=== PATIENT | female | born 1950 | race Caucasian/White ===

== ENCOUNTER 2018-11-07 07:51 | Day surgery (SDC) | payer OTHER, MEDICARE ==
[~2018-11-07] VITALS: Ht 162.6 cm; Wt 108.9 kg
[~2018-11-07 07:51] MED LIST: DICL100ER; DICL100ER PO; DICMIS75EC PO; DULO60 PO; ERGO400 PO; Effexor Xr150 MG PO; FLUT1DIS2 INH; HTN MED; LEVSOD100 PO; LEVSOD112 PO; LEVSOD25 PO; LOSA50 PO; MAGNESIUM PO; METPHE27ER; OMEP20ER PO; OXYACE5T PO; OXYC30 PO; OXYC5 PO; Omeprazole20 M1 PO; Oxybutynin Chlo10 MG PO; PRAV20 PO; PREG150 PO; Ranitidine HCl300 MG PO; TRAZ50 PO; TRIHYD253B PO; VENL75ER; ZOLP10; ZOLP10 PO; [UNRECOGNIZED DRUG - REMARK]; [UNRECOGNIZED DRUG - REMARK]
--- NOTE | 2018-11-07 08:24 | NUR ---
Ambulatory in Day Surgery History, Chart, Medications and Allergies reviewed before start of procedure.Patient confirms NPO status and agrees with scheduled surgery.
--- NOTE | 2018-11-07 08:31 | NUR ---
11/07/18 0831 Josué Delgado Bite Block PlacedPatient to ENDO 1History, Chart, Medications and Allergies reviewed before start of procedure.HURRICAINE SPRAY TO OROPHARYX.MONITOR INTACT WITH CONTINUOUS PULSE OXIMETRY AND INTERMITTENT BP.O2 VIA N/C INTACT THROUGHOUT SEDATION/PROCEDURE. See Anesthesia record
--- NOTE | 2018-11-07 09:30 | NUR ---
Discharge instructions reviewed with patient. Patient verbalizes understanding. Copy given to patient to take home. Discharged via wheelchair to private car for ride home.
== END 2018-11-07 22:44 | disposition home or self-care (01) ==
LOC: ORSCMMR 07:51 → ORD 09:30 → ORSCMMR 09:30
PROVIDERS: Internal Medicine Gastroenterology
PROC: 0DB68ZX Excision of Stomach, Via Natural or Artificial Opening Endoscopic, Diagnostic (ICD-10-PCS; principal; 2018-11-07 09:30)
PROC: 0DB58ZX Excision of Esophagus, Via Natural or Artificial Opening Endoscopic, Diagnostic (ICD-10-PCS; principal; 2018-11-07 09:30)
PROC: 0DB98ZX Excision of Duodenum, Via Natural or Artificial Opening Endoscopic, Diagnostic (ICD-10-PCS; principal; 2018-11-07 09:30)
PROC: 0DB48ZX Excision of Esophagogastric Junction, Via Natural or Artificial Opening Endoscopic, Diagnostic (ICD-10-PCS; principal; 2018-11-07 09:30)
DX: K21.9 Gastro-esophageal reflux disease without esophagitis (principal); K44.9 Diaphragmatic hernia without obstruction or gangrene; G47.33 Obstructive sleep apnea (adult) (pediatric); I10 Essential (primary) hypertension; E11.9 Type 2 diabetes mellitus without complications; F32.9 Major depressive disorder, single episode, unspecified; E78.00 Pure hypercholesterolemia, unspecified; E03.9 Hypothyroidism, unspecified; J45.909 Unspecified asthma, uncomplicated; Z79.84 Long term (current) use of oral hypoglycemic drugs; Z79.899 Other long term (current) drug therapy; E66.01 Morbid (severe) obesity due to excess calories; Z68.41 Body mass index [BMI] 40.0-44.9, adult
CPT/HCPCS: 82947; 88305; 88342; J7120

== ENCOUNTER 2019-05-15 17:35 | Observation (INO) | payer MEDICARE, OTHER ==
[~2019-05-15] VITALS: Ht 160 cm; Wt 98.1 kg
[~2019-05-15 17:35] MED LIST changes: -LEVSOD100 PO; +LEVSOD125 PO
[2019-05-15 18:01] LABS: BASOPHILS ABSOLUTE AUTO 0.02 K/mm3 (0.00-0.23); BASOPHILS PERCENT AUTO 0 % (0-2); EOSINOPHILS ABSOLUTE AUTO 0.08 K/mm3 (0.00-0.68); EOSINOPHILS PERCENT AUTO 1 % (0-6); Hematocrit 43.9 % (33.0-51.0); Hemoglobin 15.2 g/dL (11.5-16.0); IMMATURE GRAN ABSOLUTE AUTO 0.02 K/mm3 (0.00-0.10); IMMATURE GRAN PERCENT AUTO 0 % (0-1); LYMPHOCYTES ABSOLUTE AUTO 2.45 K/mm3 (0.84-5.20); LYMPHOCYTES PERCENT AUTO 36 % (21-46); MONOCYTES ABSOLUTE AUTO 0.48 K/mm3 (0.16-1.47); MONOCYTES PERCENT AUTO 7 % (4-13); Mean Corpuscular HGB 31.5 pg (26.0-34.0); Mean Corpuscular HGB Conc 34.6 g/dL (31.5-36.5); Mean Corpuscular Volume 91 fL (80-100); Mean Platelet Volume 9.9 fL (9.1-12.4); NEUTROPHILS ABSOLUTE AUTO 3.68 K/mm3 (1.96-9.15); NEUTROPHILS PERCENT AUTO 55 % (41-73); Platelet Count 215 K/mm3 (150-400); RDW Standard Deviation 42.9 fL (35.1-46.3); Red Blood Cell Count 4.82 M/mm3 (3.80-5.20); White Blood Cell Count 6.73 K/mm3 (4.00-11.30)
[2019-05-15 18:14] LABS: Alanine Aminotransfer (ALT/SGP 27 U/L (12-78); Albumin, Blood 4.2 g/dL (3.4-5.0); Albumin/Globulin Ratio 1.2 (0.8-1.8); Alk Phos 74 U/L (50-136); Anion Gap 4 mmol/L (6-16); Aspartate Aminotrans (AST/SGOT 17 U/L (12-37); Bilirubin, Total 0.3 mg/dL (0.1-1.0); Blood Urea Nitrogen 19 mg/dL (8-24); Bun/Creatinine Ratio 21.7 (12.0-20.0); CO2, Blood 29 mmol/L (21-32); Calcium, Blood 9.5 mg/dL (8.5-10.1); Chloride, Blood 105 mmol/L (98-108); Creatinine, Blood 0.88 mg/dL (0.40-1.00); Globulin, Blood 3.5 g/dL (2.2-4.0); Glomerular Filtration Rate >60 (60-); Glucose, Blood 87 mg/dL (70-99); Potassium, Blood 4.2 mmol/L (3.5-5.5); Sodium, Blood 138 mmol/L (136-145); Total Protein, Blood 7.7 g/dL (6.4-8.2); Troponin I <0.015 ng/mL (0.000-0.040)
[2019-05-15] MEDS ORDERED: LOSARTAN POTASS50 MG PO (20:06)
--- NOTE | 2019-05-15 21:55 | NUR ---
PATIENT ARRIVED TO THE FLOOR VIA GURNEY, TRANSFERRED TO BED INDEPENTANTLY, THEN UP TO THE BATHROOM, GAIT IS STEADY. NO CHEST PAIN WAS NOTED AT THIS TIME OR DURING EXERTION. LUNG SOUNDS ARE CLEAR THROUGHOUT, RESP EVEN AND UNLABORED. STATES PAIN STARTED AT 8AM THIS AM, IT WENT AWAY THEY WERE ON THE CAR RIDE HOME. ONCE HOME SHE HAD ANOTHER EPISODE OF CHEST PAIN AND SOB. SHE CAME INTO THE ER. SHE IS WORRIED HER IS A SURVIVOR OF [address] BYPASS AND SHE DOES NOT WANT TO GO THROUGH THAT. DENIES ANY SOB AT THIS TIME, NO NUMBNESS OR TINGLING, NO JAW PAIN, OR OTHER SYMPTOMS AT THIS TIME. WILL CONTINUE TO [facility].
--- NOTE | 2019-05-15 22:28 | NUR ---
CONTACTED PHARMACY REGARDING OXYBUTIN THAT IS ORDERED. PATIENT SUPPOSE TO BRING IN FROM HOME. STATES SHE NORMALLY TAKES IT IN THE AM, AND WOULD PERFER THAT TIME. SPOKE TO PHARMACIST AND THEY AGREED TO HAVE A NEW ORDER PLACED FOR AM AND TO DC THE PREVIOUS ORDER TO CHANGE THE TIMES.
--- NOTE | 2019-05-16 05:58 | NUR ---
SHIFT SUMMARY: HUSSAIN SLEPT THROUGHOUT THE NIGHT WITH NO EVENTS OF CHEST PAIN OR DISCOMFORT. SHE TOLERATED HER BIPAP WELL. LABS WERE DRAWN WITH NO CHANGES TO NOTE. AT THIS POINT THERE IS NO CHANGES TO REPORT SHE SLEPT FROM THE MOMENT SHE GOT TO THE FLOOR AND HAD NO COMPLAINTS OR CONCERNS. ONLY GOT UP ONCE TO USE THE BATHROOM.
[2019-05-16 07:36] LABS: CHOL/HDL RATIO 3.8; Cholesterol 149 mg/dL (50-200); HDL Cholesterol 39 mg/dL (>39); LDL/HDL RATIO 1.8; Low Density Lipoprotein Chol 71 mg/dL (0-110); Triglycerides 197 mg/dL (30-160); Troponin I <0.015 ng/mL (0.000-0.040); Very Low Density Lipoprot Chol 39 mg/dL (6-32)
--- NOTE | 2019-05-16 16:08 | NUR ---
SHIFT SUMMARY PATIENT HAS HAD NO COMPLAINTS OF PAIN, NO CHEST DISCOMFORT. WILL BE NPO IN AM FOR STRESS TEST. SHE IS AWARE OF THIS.
--- NOTE | 2019-05-17 04:53 | NUR ---
SHIFT SUMMARY PT HAS SLEPT WELL T/O NIGHT. HAS NOT HAD ANY CHEST PAIN DURING THE NIGHT. TELE READS NSR. NO ACUTE EVENTS OR CHANGES NOTED DURING THE NIGHT, WILL CONTINUE TO MONITOR.
[2019-05-17 05:58] LABS: Albumin, Blood 3.8 g/dL (3.4-5.0); Anion Gap 6 mmol/L (6-16); Blood Urea Nitrogen 17 mg/dL (8-24); Bun/Creatinine Ratio 19.7 (12.0-20.0); CO2, Blood 29 mmol/L (21-32); Calcium, Blood 9.2 mg/dL (8.5-10.1); Chloride, Blood 103 mmol/L (98-108); Creatinine, Blood 0.86 mg/dL (0.40-1.00); Glomerular Filtration Rate >60 (60-); Glucose, Blood 100 mg/dL (70-99); Phosphorus, Blood 4.5 mg/dL (2.5-4.9); Sodium, Blood 138 mmol/L (136-145)
--- NOTE | 2019-05-17 14:43 | NUR ---
SHIFT SUMMARY PT IS A&O, PLEASANT AND CO-OP. INDEPENDANT IN AND TO [facility]. SLEEPING DURING SHIFT REPORT. WOKE EASILY FOR CARE. HAS DENIED NEEDS. WAS NPO AFTER BREAKFAST UNTIL PREP GIVEN FOR STRESS TEST. PT ABLE TO EAT AND WAITED TO GO FOR FIRST PART OF TEST. PT TO HAVE SECOND PART OF STRESS TEST TOMORROW. NO C/O CHEST PAIN, BUT PT DID C/O GERD, "ACID REFLUX". PT REPORTED ACID REFLUX TO DR INIGUEZ; MEDICATION CHANGE TO HELP. PT RETURNED TO ; INSTRUCTIONS FOR 2ND PART OF TEST GIVEN. PT REQUESTING TO TAKE A SHOWER AT THIS TIME. PER REPORT, PT WITH HX OF LUCI, BUT REFUSES TO WEAR CPAP. SR ON TELE MX. TO TO VISIT FOR A WHILE. CALL LT IN REACH.
--- NOTE | 2019-05-18 05:55 | NUR ---
SHIFT SUMMARY PT ALERT AND ORIENTED. HAS SLEPT WELL ALL NIGHT. ONLY C/O DURING EARLY EVENING WAS OF SOME EPIGASTRIC PAIN WHEN DRINKING OR EATING ANYTHING. TELE AT NSR. NO ACUTE EVENTS OR CHANGES NOTED, WILL CONTINUE TO MONITOR.
[2019-05-18] MEDS ORDERED: TUMS500 MG PO (16:44)
[2019-05-18] MEDS ORDERED: PANT20 PO (16:45)
--- NOTE | 2019-05-18 16:46 | NUR ---
SUMMARY/DISCHARGE PT WAS NPO @ ONSET OF SHIFT FOR 2ND PORTION STRESS TEST, COMPLETED APPROX 1030. SHE STATE NO CHEST PAIN OR PRESSURE T/O DAY, STATE HOPEFUL TO GO HOME. DR INIGUEZ REVIEW STRESS TEST RESULTS THIS AFTERNOON, BACK TO DISCUSS WITH PT, STATE SRESS TEST NEGATIVE, PT MAY GO HOME, PLACE D/C ORDERS. IV D/C INTACT. TELE D/C. ORDERS FAXED TO [facility]REQUEST. PT STATE HAS F/U SCHEDULED W PCP ON MON. D/C INSTRUCT PROVIDED. SHE DECLINE W/C ESCORT FROM HOSP, STATE PREFER TO AMBULATE. PLEASANT/APPRECIATIVE AFFECT.
== END 2019-05-18 17:38 | disposition home or self-care (01) ==
LOC: ER 17:35 → MEDS 19:39 → ER 19:39 → MEDS 19:39
PROVIDERS: Internal Medicine; Nurse Practitioner Acute Care; Physician Assistant; ADMIT Hospitalist
DX: K21.9 Gastro-esophageal reflux disease without esophagitis (principal); I10 Essential (primary) hypertension; E78.00 Pure hypercholesterolemia, unspecified; G47.33 Obstructive sleep apnea (adult) (pediatric); E03.9 Hypothyroidism, unspecified; F32.9 Major depressive disorder, single episode, unspecified; M79.7 Fibromyalgia; K76.9 Liver disease, unspecified; E66.01 Morbid (severe) obesity due to excess calories; Z99.89 Dependence on other enabling machines and devices; Z79.899 Other long term (current) drug therapy
CPT/HCPCS: 36415; 71046; 78452; 80053; 80061; 80069; 83690; 83735; 84484; 85025; 93005; 93010; 93017; 94660; 94762; 96372; 96372-59; 96374; 99285-25; A9270; A9500; C9113; G0378; J1650; J2405; J2785

== ENCOUNTER 2020-05-13 07:32 | Day surgery (SDC) | payer MEDICARE, OTHER ==
[~2020-05-13] VITALS: Ht 165.1 cm; Wt 99.2 kg
[~2020-05-13 07:32] MED LIST changes: +LOSARTAN POTASS50 MG PO; +PANT20 PO; +TUMS500 MG PO
--- NOTE | 2020-05-13 08:51 | NUR ---
05/13/20 0851 Lucia Gordillo PT ASSISTED TO RESTROOM AT THIS TIME.
== END 2020-05-13 11:03 | disposition home or self-care (01) ==
LOC: ORSCSDS 07:32
PROVIDERS: Internal Medicine Gastroenterology
PROC: 0DBK8ZX Excision of Ascending Colon, Via Natural or Artificial Opening Endoscopic, Diagnostic (ICD-10-PCS; principal; 2020-05-13 09:00)
PROC: 0DBL8ZX Excision of Transverse Colon, Via Natural or Artificial Opening Endoscopic, Diagnostic (ICD-10-PCS; principal; 2020-05-13 09:00)
PROC: 0DBN8ZX Excision of Sigmoid Colon, Via Natural or Artificial Opening Endoscopic, Diagnostic (ICD-10-PCS; principal; 2020-05-13 09:00)
PROC: 0DBH8ZX Excision of Cecum, Via Natural or Artificial Opening Endoscopic, Diagnostic (ICD-10-PCS; principal; 2020-05-13 09:00)
DX: R19.7 Diarrhea, unspecified (principal); D12.5 Benign neoplasm of sigmoid colon; D12.3 Benign neoplasm of transverse colon; D12.2 Benign neoplasm of ascending colon; D12.0 Benign neoplasm of cecum; I10 Essential (primary) hypertension; E78.5 Hyperlipidemia, unspecified; J45.909 Unspecified asthma, uncomplicated; G47.33 Obstructive sleep apnea (adult) (pediatric); E11.9 Type 2 diabetes mellitus without complications; E03.9 Hypothyroidism, unspecified; K76.0 Fatty (change of) liver, not elsewhere classified; Z79.899 Other long term (current) drug therapy; E66.01 Morbid (severe) obesity due to excess calories; Z68.36 Body mass index [BMI] 36.0-36.9, adult
CPT/HCPCS: 88305; J2704; J7120

== ENCOUNTER → 2023-01-11 | Outpatient (CLI) | payer MEDICARE, OTHER | END | disposition home or self-care (01) | LOC: LAB SHORT 13:15 → LAB 13:15 | DX: R35.0 Frequency of micturition (principal) | CPT/HCPCS: 87077; 87086; 87186 ==

== ENCOUNTER → 2023-05-26 | Outpatient (CLI) | payer MEDICARE, OTHER ==
[2023-05-26 17:24] LABS: BASOPHILS ABSOLUTE AUTO 0.04 K/mm3 (0.00-0.23); BASOPHILS PERCENT AUTO 1 % (0-2); EOSINOPHILS ABSOLUTE AUTO 0.05 K/mm3 (0.00-0.68); EOSINOPHILS PERCENT AUTO 1 % (0-6); Hematocrit 42.9 % (33.0-51.0); Hemoglobin 14.8 g/dL (11.5-16.0); IMMATURE GRAN ABSOLUTE AUTO 0.04 K/mm3 (0.00-0.10); IMMATURE GRAN PERCENT AUTO 1 % (0-1); LYMPHOCYTES ABSOLUTE AUTO 1.93 K/mm3 (0.84-5.20); LYMPHOCYTES PERCENT AUTO 25 % (21-46); MONOCYTES ABSOLUTE AUTO 0.42 K/mm3 (0.16-1.47); MONOCYTES PERCENT AUTO 5 % (4-13); Mean Corpuscular HGB 31.8 pg (26.0-34.0); Mean Corpuscular HGB Conc 34.5 g/dL (31.5-36.5); Mean Corpuscular Volume 92 fL (80-100); Mean Platelet Volume 9.5 fL (9.1-12.4); NEUTROPHILS ABSOLUTE AUTO 5.24 K/mm3 (1.96-9.15); NEUTROPHILS PERCENT AUTO 68 % (41-73); Platelet Count 223 K/mm3 (150-400); RDW Coefficient Variation 12.9 % (11.7-14.2); RDW Standard Deviation 43.2 fL (35.1-46.3); Red Blood Cell Count 4.66 M/mm3 (3.80-5.20); White Blood Cell Count 7.72 K/mm3 (4.00-11.30)
[2023-05-26 17:44] LABS: Albumin, Blood 3.7 g/dL (3.4-5.0); Albumin/Globulin Ratio 1.1 (0.8-1.8); Bilirubin, Total 0.3 mg/dL (0.1-1.0); Bun/Creatinine Ratio 15.6 (12.0-20.0); Calcium, Blood 9.2 mg/dL (8.5-10.1); Creatinine, Blood 0.96 mg/dL (0.40-1.00); Globulin, Blood 3.4 g/dL (2.2-4.0); Potassium, Blood 3.5 mmol/L (3.5-5.5); Thyroid Stimulating Hormone 0.329 uIU/mL (0.360-4.800); Total Protein, Blood 7.1 g/dL (6.4-8.2)
== END | disposition home or self-care (01) ==
LOC: LAB 17:19 → LAB SHORT 17:19
PROVIDERS: Physician Assistant Surgical
DX: R53.83 Other fatigue (principal); R06.00 Dyspnea, unspecified; R94.6 Abnormal results of thyroid function studies
CPT/HCPCS: 80053; 84439; 84443; 84481; 84484; 85025

== ENCOUNTER 2023-10-06 06:06 | Day surgery (SDC) | payer MEDICARE, OTHER ==
[~2023-10-06] VITALS: Ht 162.6 cm; Wt 102.6 kg
[2023-10-06] MEDS ORDERED: Acetaminophen650 M1 (06:35)
--- NOTE | 2023-10-06 07:36 | NUR ---
10/06/23 0736 Trace Cheek ROPIVACAINE 0.5% 30 MLS MIXED & VERIFIED W/ EPI 0.15ML (1MG/ML), PER ORDER, TO MAKE ROPIVACAINE 0.5% 1:200,000 FOR INJECTION AT OPSITE BY DR AVILEZ.
--- NOTE | 2023-10-06 09:04 | NUR ---
10/06/23 0904 Sunny Pérez PT WAS PROVIDED FENTANYL 25MCG IN TWO DOSES OVER ABOUT TEN MINUTES TO ADDRESS 9/10 RIGHT FOOT PAIN WHILE IN PACU. PAIN DOWN TO 7/10WORST PRIOR TO MOVING TO STEPDOWN.
[2023-10-06 09:51] VITALS: BP 143/75
== END 2023-10-06 09:55 | disposition home or self-care (01) ==
LOC: ORSCSDS 06:06
PROVIDERS: Podiatrist Foot & Ankle Surgery
PROC: 0SGK04Z Fusion of Right Tarsometatarsal Joint with Internal Fixation Device, Open Approach (ICD-10-PCS; principal; 2023-10-06 07:30)
DX: M19.071 Primary osteoarthritis, right ankle and foot (principal); I10 Essential (primary) hypertension; J44.9 Chronic obstructive pulmonary disease, unspecified; K21.9 Gastro-esophageal reflux disease without esophagitis; E03.9 Hypothyroidism, unspecified; E66.9 Obesity, unspecified; Z68.38 Body mass index [BMI] 38.0-38.9, adult; E78.5 Hyperlipidemia, unspecified; F32.A Depression, unspecified; Z79.899 Other long term (current) drug therapy
CPT/HCPCS: 82947; C1713; J0171; J0690; J1100; J2405; J2704; J2795; J3010; J7120